=== PATIENT | male | born 1955 | race Caucasian/White ===

== ENCOUNTER → 2016-09-07 | Outpatient (CLI) | payer OTHER ==
--- NOTE | 2016-09-07 17:09 | DX ---
Chest, PA and Lateral History: Cough x3 weeks of fatigue, J45.909, asthma Comparison: None Findings: Lung volumes are prominent. There is perihilar bronchial wall thickening. Is no focal infil trate or consolidation. Heart size and pulmonary vascularity are normal. There is no adenopathy or ma ss lesion. There is no pleural effusion, pneumomediastinum or pneumothorax. There is degenerative spu rring in the mid and lower thoracic spine.. Impression: Suspect airways disease. No pneumonia.
== END ==
LOC: FIMAGING 16:06
PROVIDERS: ATTEND Nurse Practitioner Family
DX: R05 Cough (principal); R53.83 Other fatigue; J45.909 Unspecified asthma, uncomplicated